=== PATIENT | male | born 1970 | race Asian ===

== ENCOUNTER 2020-02-23 06:27 | Emergency (ER) | payer MEDICAID ==
[~2020-02-23] VITALS: Ht 180.3 cm; Wt 73.3 kg
[2020-02-23] MEDS ORDERED: LIDOCAINE-MPF 1%, 5ML INFIL ONE (07:00)
--- NOTE | 2020-02-23 07:43 | NUR ---
Patient given discharge instructions and Rx, they have confirmed that they understand the instructions. Patient ambulatory with steady gait.
== END 2020-02-23 08:07 | disposition home or self-care (01) ==
LOC: UNMERGE 06:46 → MERGE 06:46 → ED 06:46
DX: K02.9 Dental caries, unspecified (principal); E11.9 Type 2 diabetes mellitus without complications; I10 Essential (primary) hypertension
CPT/HCPCS: 64400; 99284